=== PATIENT | male | born 1955 | race Caucasian/White ===

== ENCOUNTER 2017-05-22 15:52 | Emergency (ER) | payer OTHER ==
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
== END 2017-05-22 19:52 | disposition home or self-care (01) ==
LOC: ERS 15:52
DX: S13.4XXA Sprain of ligaments of cervical spine, initial encounter (principal); Z87.891 Personal history of nicotine dependence; V49.49XA Driver injured in collision with other motor vehicles in traffic accident, initial encounter
CPT/HCPCS: 72125

== ENCOUNTER 2021-07-02 19:00 | Outpatient (CLI) | payer BC | END 2021-07-02 19:01 | disposition home or self-care (01) | LOC: SLEEPLAB 19:00 | PROVIDERS: ATTEND Psychiatry & Neurology Neurology | DX: G47.33 Obstructive sleep apnea (adult) (pediatric) (principal); G47.10 Hypersomnia, unspecified; G47.419 Narcolepsy without cataplexy | CPT/HCPCS: 95811 ==

== ENCOUNTER 2024-05-22 12:58 | Inpatient (IN) | payer MEDICARE ==
[2024-05-22] MEDS ORDERED: Morphine 4 MG/ML VIAL ONE ×3 (13:52→17:41)
[2024-05-22] MEDS ORDERED: Ondansetron PF 4 MG/2 ML Vial ONE (13:52)
[2024-05-22 14:03] LABS: #Basophils 0.04 10x3/uL (0.0-0.2); %Basophils 0.5 % (0.0-1.0); %Eosinophils 0.6 % (0.0-10.0); %Lymphocytes 9.5 % (21.0-51.0); %Monocytes 7.2 % (0.0-10.0); %Neutrophils 81.8 % (42.0-75.0); Hematocrit 39.9 % (42.0-52.0); Hemoglobin 13.9 g/dL (14.0-18.0); Mean Corpuscular HGB CONC 34.8 g/dL (32.0-36.0); Mean Corpuscular Hemoglobin 31.6 pg (27.0-31.0); Mean Corpuscular Volume 90.7 fL (78.0-98.0); Mean Platelet Volume 9.7 fL (7.4-10.4); Platelet Count 207 10x3/uL (130-400); RBC Distribution Width 12.6 % (11.5-14.5)
[2024-05-22 14:18] LABS: ALT (SGPT) 15 U/L (8-55); AST (SGOT) 19 U/L (5-34); Albumin 3.5 g/dL (3.4-4.8); Alkaline Phosphatase 54 U/L (40-110); Anion Gap 12 mmol/L (10-20); BUN (Urea Nitrogen) 24 mg/dL (8.4-25.7); Bilirubin, Total 0.5 mg/dL (0.2-1.2); Calc. Creatinine Clearance 0 mL/min (70-130); Calcium 8.9 mg/dL (7.8-10.44); Carbon Dioxide 24 mmol/L (23-31); Chloride 106 mmol/L (98-107); Estimated GFR 31; Globulin 3.5 g/dL (2.4-3.5); Glucose 100 mg/dL (80-115); Lipase 22 U/L (8-78); Potassium 4.1 mmol/L (3.5-5.1); Sodium 138 mmol/L (136-145)
[2024-05-22 14:54] LABS: Bacteria/HPF None Seen HPF (None Seen); Bilirubin Negative (Negative); Blood, Urine Trace (Negative); CAUTI Indications for Culture Pelvic or flank pain; Clarity Clear (Clear); Glucose, Urine (Dipstick) Normal (Negative); Ketone, Urine Trace mg/dL (Negative); Leukocyte Negative Leu/uL (Negative); Nitrite Negative (Negative); Protein, Urine (Dipstick) Negative (Neg-Trace); RBC/HPF 0-3 HPF (0-3); Specific Gravity, Urine 1.017 (1.002-1.036); Squamous Epithelial 0-3 HPF (0-3); Urobilinogen Normal mg/dL (Less than 2); WBC/HPF 0-3 HPF (0-3); pH, Urine 5.5 (5.0-9.0)
[2024-05-22 15:00] LABS: Urine Culture Reflex No No
[2024-05-22] MEDS ORDERED: Ondansetron ODT 4 MG TAB PO PRN (17:49)
[2024-05-22 19:43] VITALS: BMI 29.6
[2024-05-22] MEDS ORDERED: Morphine 4 MG/ML VIAL SLOW IVP PRN (21:00)
[2024-05-22] MEDS: Morphine 4 MG/ML VIAL SLOW IVP PRN (21:33)
[2024-05-22] MEDS: Sodium Chloride 0.9% 1,000 ML IV SCH (21:33)
[2024-05-23] MEDS: Ondansetron PF 4 MG/2 ML Vial IVP PRN (01:34)
[2024-05-23 05:09] LABS: #Basophils 0.04 10x3/uL (0.0-0.2); %Basophils 0.5 % (0.0-1.0); %Eosinophils 0.9 % (0.0-10.0); %Lymphocytes 10.6 % (21.0-51.0); %Monocytes 10.4 % (0.0-10.0); %Neutrophils 77.1 % (42.0-75.0); Hematocrit 36.6 % (42.0-52.0); Hemoglobin 12.4 g/dL (14.0-18.0); Mean Corpuscular HGB CONC 33.9 g/dL (32.0-36.0); Mean Corpuscular Hemoglobin 31.6 pg (27.0-31.0); Mean Corpuscular Volume 93.4 fL (78.0-98.0); Mean Platelet Volume 9.7 fL (7.4-10.4); Platelet Count 179 10x3/uL (130-400); RBC Distribution Width 12.8 % (11.5-14.5); Red Blood Cell (RBC) Count 3.92 mill/uL (4.70-6.10)
[2024-05-23 05:22] LABS: Anion Gap 10 mmol/L (10-20); BUN (Urea Nitrogen) 20 mg/dL (8.4-25.7); Calc. Creatinine Clearance 55 mL/min (70-130); Calcium 8.6 mg/dL (7.8-10.44); Carbon Dioxide 20 mmol/L (23-31); Chloride 110 mmol/L (98-107); Estimated GFR 46; Glucose 134 mg/dL (80-115); Potassium 4.3 mmol/L (3.5-5.1); Sodium 136 mmol/L (136-145)
[2024-05-23 08:24] VITALS: TEMP 97.6
[2024-05-23] MEDS: Multivitamin w/Zinc Stress 1 TAB PO SCH (08:43)
[2024-05-23] MEDS ORDERED: Non-Formulary Item 1 EACH (Vitamin B Complex [Vitamin B Complex] 1 CAP Capsule) PO SCH (09:00)
[2024-05-23] MEDS: Acetaminophen 325 MG TAB PO PRN (09:28)
[2024-05-23] MEDS: HYDROmorphone 0.5 MG/0.5 ML SYRINGE SLOW IVP SCH (09:46)
[2024-05-23] MEDS ORDERED: Famotidine/PF 20 mg/2ml Vial ONE (10:00)
[2024-05-23] MEDS: HYDROcodone/Acetaminophen 7.5/325 mg Tablet PO PRN (10:59)
[2024-05-23] MEDS ORDERED: Lidocaine 2% PF 5 ML VIAL ONE (14:04)
[2024-05-23] MEDS ORDERED: Ondansetron PF 4 MG/2 ML Vial ONE (14:05)
[2024-05-23] MEDS ORDERED: Dexamethasone 4 mg/ml Vial ONE (14:05)
[2024-05-23] MEDS ORDERED: PROPOFOL 20 ML ONE (14:05)
[2024-05-23] MEDS ORDERED: LevoFLOXacin D5W 500 mg (100 mL) BAG ONE (14:24)
[2024-05-23] MEDS ORDERED: Iopamidol 15 ML ONE (15:14)
[2024-05-23 18:10] VITALS: BP 148/82
== END 2024-05-23 18:45 | disposition home or self-care (01) | DRG 661 ==
LOC: ERS 12:58 → SURG A 17:49
PROVIDERS: ADMIT Hospitalist; ATTEND Family Medicine
PROC: 0T778DZ Dilation of Left Ureter with Intraluminal Device, Via Natural or Artificial Opening Endoscopic (ICD-10-PCS; principal; 2024-05-23)
DX: N13.2 Hydronephrosis with renal and ureteral calculous obstruction (principal); N17.9 Acute kidney failure, unspecified; Z71.6 Tobacco abuse counseling; Z90.49 Acquired absence of other specified parts of digestive tract; F17.210 Nicotine dependence, cigarettes, uncomplicated
CPT/HCPCS: 36415; 74176; 74420; 80048; 80053; 81001; 83605; 83690; 85025; 93005; 93010; 96374; 96375; 96376; C2617; J1100; J1956; J2272; J2405; J2704; J3490; J7030; Q9967

== ENCOUNTER 2024-06-10 10:30 | Outpatient (CLI) | payer MEDICARE ==
[2024-06-10 12:18] LABS: Bilirubin Unable to Interpret (Negative); Blood, Urine Unable to Interpret (Negative); Clarity Hazy (Clear); Glucose, Urine (Dipstick) Unable to Interpret mg/dL (Negative); Ketone, Urine Unable to Interpret mg/dL (Negative); Leukocyte Unable to Interpret Leu/uL (Negative); Nitrite Unable to Interpret (Negative); Protein, Urine (Dipstick) Unable to Interpret mg/dL (Neg-Trace); Specific Gravity, Urine 1.016 (1.002-1.036); Urobilinogen UNABLE TO INTERPRET mg/dL (Less than 2); pH, Urine 5.5 (5.0-9.0)
[2024-06-10 12:28] LABS: Bacteria/HPF 1+ HPF (None Seen); Squamous Epithelial None Seen HPF (0-3)
== END 2024-06-10 10:31 | disposition home or self-care (01) ==
LOC: LABBT 10:30
PROVIDERS: ATTEND Urology
DX: Z01.818 Encounter for other preprocedural examination (principal); N20.0 Calculus of kidney
CPT/HCPCS: 81001; 87086; 93005; 93010

== ENCOUNTER 2024-06-24 07:15 | Day surgery (SDC) | payer MEDICARE ==
[2024-06-10 10:50] VITALS: BMI 28.8
[2024-06-24] MEDS ORDERED: LevoFLOXacin D5W 500 mg (100 mL) BAG ONE (09:31)
[2024-06-24] MEDS ORDERED: PROPOFOL 20 ML ONE (10:14)
[2024-06-24] MEDS ORDERED: fentaNYL PF 100 MCG/2 ML SYRINGE ONE (10:14)
[2024-06-24] MEDS ORDERED: Midazolam HCl 2 mg/2 ml Vial ONE (10:15)
[2024-06-24] MEDS ORDERED: Ketamine In 0.9 % NaCl 50 MG/5 ML SYRINGE ONE (10:41)
[2024-06-24] MEDS ORDERED: Ondansetron PF 4 MG/2 ML Vial ONE (11:18)
[2024-06-24] MEDS ORDERED: Dexamethasone 20 MG/5 ML VIAL ONE (11:18)
[2024-06-24] MEDS ORDERED: SUGAMMADEX SODIUM 200 MG/2 ML VIAL ONE (11:22)
[2024-06-24] MEDS ORDERED: Phenazopyridine HCl 100 MG TAB ONE (11:51)
[2024-06-24] MEDS ORDERED: Oxybutynin 5 MG TAB ONE (11:51)
== END 2024-06-24 14:20 | disposition home or self-care (01) ==
LOC: SDC 07:15
PROVIDERS: ATTEND Urology
PROC: 0TC18ZZ Extirpation of Matter from Left Kidney, Via Natural or Artificial Opening Endoscopic (ICD-10-PCS; principal; 2024-06-24)
PROC: 0T778DZ Dilation of Left Ureter with Intraluminal Device, Via Natural or Artificial Opening Endoscopic (ICD-10-PCS; 2024-06-24)
DX: N20.0 Calculus of kidney (principal); G47.33 Obstructive sleep apnea (adult) (pediatric); Z87.891 Personal history of nicotine dependence; Z88.1 Allergy status to other antibiotic agents
CPT/HCPCS: 52356; 82365; C1713; C1747; C2617; J1100; J1956; J2250; J2405; J2704; J3490; 88300